=== PATIENT | female | born 1970 | race Caucasian/White ===

== ENCOUNTER 2020-05-13 15:35 | Inpatient (IN) | payer BC, OTHER ==
--- NOTE | 2020-05-13 16:42 | ULT ---
EXAM: US Gallbladder RUQ CLINICAL HISTORY: Cholelithiasis. Right upper arm pain.. COMPARISON: None. FINDINGS: Pancreas: Obscured by bowel gas Liver:Hepatic parenchyma has a normal echotexture. 2.1 cm hepatic cyst. No solid hepatic masses or in trahepatic biliary dilatation. Right hepatic lobe: 15.9 cm Gallbladder: Sonographic evidence of cholelithiasis. Gallbladder wall is 0.3 cm. No pericholecystic f luid. Riggs's sign:Neck Portal Vein: Patent. Appropriate directional flow Bile ducts: 0.4 cm common bile duct diameter Right kidney: No hydronephrosis. Right kidney measures 10.5 cm in length. IMPRESSION: 1. Sonographic evidence of cholelithiasis. Gallbladder wall thickness of the upper limits of normal. No pericholecystic fluid. Negative Riggs's sign. There is concern for cholecystitis, consider HIDA scan.
[2020-05-13] MEDS ORDERED: cefTRIAXone\\ROCEPHIN 1 GM in Sodium Chloride 0.9% 100 ML IVPB SCH (18:45)
[2020-05-13] MEDS ORDERED: Electrolyte Replacement Protoc 1 EACH EACH FS SCH (19:00)
[2020-05-13 19:19] LABS: #Eosinphils 0.1 thou/uL (0.0-0.7); #Lymphocytes 1.1 thou/uL (1.20-3.40); #Monocytes 0.6 thou/uL (0.11-0.59); #Neutrophils 9.1 thou/uL (1.40-6.50); %Basophils 0.4 % (0.0-1.0); %Eosinophils 0.7 % (0.0-10.0); %Monocytes 5.7 % (0.0-10.0); %Neutrophils 83.2 % (42.0-75.0); Hemoglobin 11.8 g/dL (12.0-16.0); Mean Corpuscular HGB CONC 33.1 g/dL (32.0-36.0); Mean Corpuscular Hemoglobin 30.6 pg (27.0-31.0); Mean Corpuscular Volume 92.6 fL (78.0-98.0); Mean Platelet Volume 9.8 fL (7.4-10.4); Platelet Count 167 thou/uL (130-400); RBC Distribution Width 12.9 % (11.5-14.5); Red Blood Cell (RBC) Count 3.85 mill/uL (4.20-5.40); White Blood Cell (WBC) Count 10.9 thou/uL (4.8-10.8)
[2020-05-13] MEDS ORDERED: Electrolyte Replacement Protocol FS PRN (19:30)
[2020-05-13 19:37] LABS: ALT (SGPT) 8 U/L (8-55); AST (SGOT) 16 U/L (5-34); Albumin 3.6 g/dL (3.5-5.0); Alkaline Phosphatase 71 U/L (40-110); Anion Gap 15 mmol/L (10-20); BUN (Urea Nitrogen) 10 mg/dL (7.0-18.7); Bilirubin, Total 0.8 mg/dL (0.2-1.2); Calc. Creatinine Clearance 0 mL/min (70-130); Calcium 8.8 mg/dL (7.8-10.44); Carbon Dioxide 20 mmol/L (22-29); Chloride 104 mmol/L (98-107); Estimated GFR-MDRD 65; Globulin 3.1 g/dL (2.4-3.5); Glucose 94 mg/dL (70-105); Magnesium 1.8 mg/dL (1.6-2.6); Potassium 3.1 mmol/L (3.5-5.1); Protein, Total 6.7 g/dL (6.0-8.3); Sodium 136 mmol/L (136-145)
--- NOTE | 2020-05-13 20:19 | PDOC.HHP ---
Hospitalist HPI - History of Present Illness Right lower quadrant pain History of Present Illness: This is a 50-year-old female with a history of hypothyroidism who presents to the ED as a transfer from [facility] on account of diverticulitis. Patient is known to have restarted having right lower quadrant pain about 2 days ago which was initially so severe it made had have to squat when she got out of a car. She went home and rested and pain subsequently subsided however only to recur care. As pain got significantly worse she presented to her PCP and was sent to [facility] and later transferred here for higher level care. During her evaluation it was noted that she also has a right upper quadrant tenderness for which she had an ultrasound scan which could not rule out diverticulitis. She had 3 loose stools a day ago however none today. She denies any constipation. Has increased urinary frequency but no dysuria. She denies any fevers nausea vomiting however she has anorexia. CT scan of the abdomen was however concerning for diverticulitis with multiple cholelithiasis. Labs at presentation showed a leukocytosis of 10.9 with mild anemia of 11.8. She also had a potassium of 3.1. Urinalysis showed increased protein with increased RBCs. She was started on vancomycin and cefepime Her blood pressures initially were in the 90sreceived bolus of normal saline with improvement. Hospitalist team was consulted for admission Of note she recently had work-related left ankle injury for which she had orthopedic surgery and is currently in orthopedic boots. Hospitalist ROS - Review of Systems Constitutional: denies: fever, chills, sweats, weakness Respiratory: reports: cough (Occasional dry cough). denies: shortness of breath , hemoptysis, SOB with excertion, pleuritic pain Cardiovascular: denies: chest pain, palpitations, orthopnea Gastrointestinal: denies: nausea, vomiting, abdominal pain, diarrhea, constipation Genitourinary: reports: frequency. denies: dysuria, incontinence, hematuria Neurological: denies: weakness, numbness, incoordination, change in speech All other systems reviewed; all pertinent +/- noted in HPI/Subj - Medication Medications: HCTZ 12.5 mg daily Thyroid 60 mg daily Telmisartan 40 mg daily Omeprazole 40 mg daily Levocetirizine 5 mg next Allergies: No known allergies Hospitalist History - Past Medical History Gastrointestinal: reports: GERD Endocrine: reports: Hypothyroidism - Past Surgical History Past Surgical History: reports: Hysterectomy - Exam Eye: PERRL, anicteric sclera Heart - other findings: S1-S2 present and normal. No murmurs gallops or rubs. Respiratory - other findings: Air entry adequate bilaterally. No rhonchi rales or wheezes. Gastrointestinal: non-distended, normal bowel sounds, no palpable masses, no hepatomegaly, no splenomegaly Gastrointestinal - other findings: Left lower quadrant tenderness, right upper quadrant tenderness. Extremities - other findings: Left lower limb and orthopedic boots. Right foot with plates. Hospitalist Results - Labs Result Diagrams: 05/13/20 19:05 05/13/20 19:05 Lab results: WBC 10.9 thou/uL (4.8-10.8) H 05/13/20 19:05 Hgb 11.8 g/dL (12.0-16.0) L 05/13/20 19:05 Hct 35.7 % (36.0-47.0) L 05/13/20 19:05 MCV 92.6 fL (78.0-98.0) 05/13/20 19:05 Plt Count 167 thou/uL (130-400) 05/13/20 19:05 Neutrophils % 83.2 % (42.0-75.0) H 05/13/20 19:05 Sodium 136 mmol/L (136-145) 05/13/20 19:05 Potassium 3.1 mmol/L (3.5-5.1) L 05/13/20 19:05 Chloride 104 mmol/L (98-107) 05/13/20 19:05 Carbon Dioxide 20 mmol/L (22-29) L 05/13/20 19:05 BUN 10 mg/dL (7.0-18.7) 05/13/20 19:05 Creatinine 0.92 mg/dL (0.6-1.1) 05/13/20 19:05 Glucose 94 mg/dL (70-105) 05/13/20 19:05 Calcium 8.8 mg/dL (7.8-10.44) 05/13/20 19:05 Total Bilirubin 0.8 mg/dL (0.2-1.2) 05/13/20 19:05 AST 16 U/L (5-34) 05/13/20 19:05 ALT 8 U/L (8-55) 05/13/20 19:05 Alkaline Phosphatase 71 U/L (40-110) 05/13/20 19:05 Serum Total Protein 6.7 g/dL (6.0-8.3) 05/13/20 19:05 Albumin 3.6 g/dL (3.5-5.0) 05/13/20 19:05 Hospitalist H&P A/P - Plan Plan: 50-year-old female patient with a history of hypothyroidism presents with a 2- day history of left lower quadrant pain and now diagnosed with acute diverticulitis. She has also right upper quadrant pain with cholelithiasis and concerning for possible cholecystitis. Initial blood pressures were 90s systolic and concerning for possible sepsis Initial admission order was placed for observation however this will be changed while on admission to inpatient admission if needed tomorrow. Possible sepsis So has been diverticulitis and possibly cholecystitis Leukocytosis of 10.9, with mean arterial pressure going as low as 67 however this improved with fluid bolus. Lactate was below 2 Blood culture ordered He was started on vancomycin and cefepime Switch antibiotics to Zosyn for anaerobic coverage Diverticulitis Started on vancomycin and cefepime We will continue onZosyn We will keep n.p.o. Consult GI. Possible cholecystitis Cholelithiasis however no clear impression for cholecystitis. HIDA scan has been suggested by radiology We will appreciated GI input in this. Continue Zosyn For possible consult for general surgery. Cholelithiasis Surgery evaluation in a.m. Hematuria Unclear etiology Repeat UA in the morning Urology consult if indicated. Hypothyroidism Continue home medications. Left ankle fracture Status post orthopedic surgery Still wearing orthopedic boot Consult orthopedic in a.m. DVT prophylaxisLovenox
[2020-05-13] MEDS ORDERED: metroNIDAZOLE 500 MG in Premix Bag 1 BAG IVPB SCH (22:00)
[2020-05-13 22:17] VITALS: BMI 34.6
[2020-05-13] MEDS: Piperacillin/Tazobactam 4.5 GM in Sodium Chloride 0.9% 100 ML IVPB SCH (22:43)
[2020-05-13] MEDS ORDERED: Magnesium 2 GM/50 ML 2 GM in Premix Bag 1 BAG IVPB SCH (23:30)
[2020-05-13] MEDS ORDERED: Potassium Chloride 40 MEQ in Premix Bag 1 BAG IVPB SCH (23:30)
[2020-05-13] MEDS ORDERED: Potassium Chloride 40 MEQ in Sodium Chloride 0.9% 250 ML 250 ML IVPB SCH (23:30)
[2020-05-14] MEDS: Sodium Chloride 0.9% 1,000 ML IV SCH ×2 (01:58→15:53)
[2020-05-14 05:35] LABS: Band 3 % (5-11); Eosinophils 1 % (0-10); Hemoglobin 10.4 g/dL (12.0-16.0); Lymphocytes 16 % (21-51); MDiff Complete? YES; Mean Corpuscular HGB CONC 32.9 g/dL (32.0-36.0); Mean Corpuscular Volume 91.3 fL (78.0-98.0); Mean Platelet Volume 9.1 fL (7.4-10.4); Monocytes 2 % (0-10); Platelet Count 174 thou/uL (130-400); RBC Distribution Width 12.7 % (11.5-14.5); Red Blood Cell (RBC) Count 3.45 mill/uL (4.20-5.40); White Blood Cell (WBC) Count 8.5 thou/uL (4.8-10.8)
[2020-05-14 05:47] LABS: ALT (SGPT) 10 U/L (8-55); AST (SGOT) 15 U/L (5-34); Albumin 3.1 g/dL (3.5-5.0); Alkaline Phosphatase 66 U/L (40-110); Anion Gap 11 mmol/L (10-20); BUN (Urea Nitrogen) 9 mg/dL (7.0-18.7); Bilirubin, Total 1.1 mg/dL (0.2-1.2); Calc. Creatinine Clearance 140 mL/min (70-130); Calcium 8.5 mg/dL (7.8-10.44); Carbon Dioxide 24 mmol/L (22-29); Chloride 104 mmol/L (98-107); Estimated GFR-MDRD 75; Globulin 2.8 g/dL (2.4-3.5); Glucose 93 mg/dL (70-105); Protein, Total 5.9 g/dL (6.0-8.3); Sodium 136 mmol/L (136-145)
[2020-05-14] MEDS ORDERED: Potassium Chloride 40 MEQ in Sodium Chloride 0.9% 250 ML 250 ML IVPB SCH ×2 (06:15→08:00)
[2020-05-14] MEDS: Piperacillin/Tazobactam 4.5 GM in Sodium Chloride 0.9% 100 ML IVPB SCH ×2 (06:53→13:53)
[2020-05-14] MEDS ORDERED: Enoxaparin Sodium 40 MG/0.4 ML SYRINGE SC SCH (09:00)
[2020-05-14 11:53] VITALS: BP 111/58; TEMP 98.8
[2020-05-14 12:43] LABS: SARS-CoV-2 MS2 Positive; SARS-CoV-2 N Gene Negative; SARS-CoV-2 S Gene Negative; SARS-CoV-2 by NAA Not Detected (NotDetected); SARS-CoV-2 orf1ab Negative
--- NOTE | 2020-05-14 16:54 | CON ---
DATE OF CONSULTATION: HISTORY OF PRESENT ILLNESS: Papo Waller is a 50-year-old female from [place]. The patient began having pain several days ago, left lower quadrant, got worse, onset , became worse on Friday, more severe on Friday. Went to the emergency room in [place], evaluated, and sent to our emergency room, admitted to hospitalist service. On exam, the patient was noted to have slight tenderness in right upper quadrant. Gallbladder ultrasound was obtained. CT scan of the abdomen and pelvis reveals a 2 cm ovarian cyst, changes with uncomplicated diverticulitis. Ultrasound of the gallbladder reveals sludge with normal bile duct caliber. Liver function tests normal. The patient has a history of reflux, controlled with PPIs. Reflux is manifested in thoracic burning pain. She has no upper abdominal complaints. Detailed evaluation and conversation revealed total absence of any biliary symptoms. The patient has never had episodes of diverticulitis in the past. She is 50 years old. Never had a colonoscopy. Her mother had a colon resection for some diagnosis, that she is unsure of. She is not sure whether it was cancer or not. Family history otherwise noncontributory. The patient has since been having intravenous antibiotics and bowel rest yesterday and is feeling much better. Dr. Martinez is seeing her. SOCIAL HISTORY: Tobacco, none. Alcohol, none. ALLERGIES: NONE. MEDICATIONS: 1. Xyzal. 2. Hydrochlorothiazide. 3. Telmisartan. 4. Thyroid replacement. 5. Omeprazole. 6. Metronidazole. 7. Levaquin. 8. This hospitalization, she has been started on Zosyn. PAST SURGICAL HISTORY: 1. Bilateral ankle surgery. 2. Total abdominal hysterectomy and bilateral salpingo-oophorectomy. 3. Tonsillectomy in the past. PAST MEDICAL HISTORY: Aside from reflux, high blood pressure, and low thyroid, noncontributory. Reflux is well controlled on PPIs. She follows a PA physician in [place]. REVIEW OF SYSTEMS: Noncontributory. FAMILY HISTORY: Otherwise noncontributory. PHYSICAL EXAMINATION: VITAL SIGNS: Height 5 feet 9 inches, 234 pounds, and 34 BMI, temperature 98.8 degrees, heart rate 71, and blood pressure 111/58. LUNGS: Clear to auscultation. CARDIAC: Regular rate and rhythm without murmur or gallop. ABDOMEN: Soft and nontender in her epigastric and right upper quadrant. She has minimal tenderness and minimal guarding in the left lower quadrant. Otherwise, her abdomen remainder quadrants are soft. EXTREMITIES: Unremarkable. No ankle edema. LABORATORY DATA: White count 10.9 yesterday and 8.5 today, hemoglobin 10.4. Basic metabolic profile normal. Potassium 3.0. ASSESSMENT AND PLAN: 1. Diverticulitis. We would recommend outpatient therapy consisting of clear to full liquids today, advance slowly to a low-fiber soft diet for the next 2 weeks. After 2 weeks, she can transition into a high-fiber diet. We will continue oral antibiotics for a week to 10 days. We would recommend that she see Dr. Martinez as an outpatient in 2-3 months for colonoscopy. 2. Asymptomatic cholelithiasis. We would not recommend cholecystectomy. Should she develop biliary symptoms, she can call my office and we can discuss that. I have discussed the operation with her. Risks and benefits involved. 3. I have discussed long-term diverticulitis with her and the complications that can occur, and should she have future episodes, she should immediately start on liquids only, seek a physician, oral antibiotics, and hopefully treat this as an outpatient. I will be glad to see her as an outpatient should she have future surgical concerns. Job ID: [id number]
[2020-05-14] MEDS ORDERED: Amoxicillin/Potassium Clav 875 MG TAB PO SCH (21:00)
--- NOTE | 2020-05-15 13:44 | DIS ---
DATE OF ADMISSION: 05/14/2020 DATE OF DISCHARGE: 05/14/2020 DISCHARGE DIAGNOSES: 1. Acute diverticulitis. 2. Cholelithiasis. 3. Left lower limb fracture. 4. Hypothyroidism 5. Right pelvic cystic mass HOSPITAL COURSE: This is a 50-year-old female patient with history of hypothyroidism, who presented as a transfer from [facility] in account of acute diverticulitis. She noted the pain 2 days prior to presentation, which caused to further worsen. CT scan revealed diverticulitis, however, also revealed cholelithiasis. Right upper quadrant ultrasound also noted cholelithiasis, but could not rule out cholecystitis. She was started on vancomycin and cefepime at [place], however, at presentation, antibiotics was changed to Zosyn. At presentation, she also had low blood pressure with systolic in the 80s and 90s IV bolus of normal saline on concerns for possible sepsis. Her blood pressure however corrected and she made significant recovery within a day on admission. Gastroenterology was consulted and recommended discharge on antibiotics for 10 days. Given concerns for possible cholecystitis, General Surgery was also consulted, who recommended non-surgical approach of this admission and to follow up in clinic when necessary. Her CT scan also revealed a left pelvic cystic lesion possibly from the ovaries. Patient will follow up with her PCP and ortho assistant. Consultations: General surgery, GI She will follow up with PCP GI follow-up in 8 weeks DISCHARGE PHYSICAL EXAMINATION: GENERAL: The patient was in no acute distress. CARDIOVASCULAR: S1 and S2 present. No murmurs, gallops, or rubs. RESPIRATORY: Air entry adequate bilaterally. ABDOMEN: Soft, mild left iliac fossa tenderness, no rebound tenderness or guarding. Bowel sounds present and normal. DISCHARGE CONDITION: Stable. FOLLOWUP: 1. PCP. 2. Gastroenterology: To follow up for colonoscopy in about 8 weeks. Job ID: [id number] [facility]
--- NOTE | 2020-05-15 15:16 | CON ---
DATE OF CONSULTATION: 05/14/2020 REASON FOR CONSULTATION: Diverticulitis, gallstones. HISTORY OF PRESENT ILLNESS: Ms. Ozzie Waller is a pleasant 50-year-old female who came to the emergency room yesterday for 3 days of left lower quadrant pain, which was worsening with obstipation and then she had a fever of 101. In the emergency room, she had elevated white count, tenderness in the left lower quadrant. She reported it had been gotten progressively worse when she walked, moved around would hurt there. A CAT scan showed diverticulitis. It also apparently shows some gallstones in her gallbladder. She reports that she has had reflux, which has responded well to PPI therapy in the past. At work, sometimes she gets intermittent sharp pain in her chest, which she attributed to stress of her job. She has not really had any postprandial pain in her chest, upper abdomen, or back. On the ultrasound, there were some gas densities in the middle of some of her gallstones and she had a mild distention of the gallbladder with no overt pericholecystic edema. Ultrasound showed a borderline gallbladder wall. There was no evidence of elevated liver function test nor ductal dilatation. Today, she feels much better. She wants to eat. She has been n.p.o. overnight. She has not had diverticulitis in the past. She has never had a screening colonoscopy. She has no history of blood in her stool. She has no family history of colorectal cancer, liver disease, Crohn's, or colitis. REVIEW OF SYSTEMS: GI: No weight loss, dysphagia, or odynophagia. PAST SURGICAL HISTORY: 1. She has had some trauma to the left ankle, requiring plate. 2. She has also had replacement of the right ankle. 3. She also reports a hysterectomy. PAST MEDICAL HISTORY: 1. Reflux. 2. Hypothyroidism. 3. Hypertension. MEDICATIONS: At home: 1. Hydrochlorothiazide. 2. Synthroid. 3. Telmesartan. 4. Omeprazole. 5. Levocetirizine. Medications here: 1. Lovenox. 2. Protonix. 3. Zosyn. 4. Normal saline at 100. FAMILY HISTORY: Negative for colorectal cancer, liver disease, inflammatory bowel disease, or colon cancer. SOCIAL HISTORY: Drinks socially rarely. Does not use drugs. Does not smoke. She lives in [place], [place]. She sees Carla Peter RN, [employer], for primary care. PHYSICAL EXAMINATION: VITAL SIGNS: Temperature was 98.6 last night and 98.8 today, pulse 71, and blood pressure 111/58. GENERAL: She is resting comfortably in bed. She is in no distress. She is alert and oriented to person, place, and time. OROPHARYNX: Without lesions. NECK: Supple. There is no adenopathy in the supraclavicular or infraclavicular areas. LUNGS: Clear. HEART: Regular rate and rhythm without clicks or murmurs. ABDOMEN: Soft. There is no tenderness in the right upper quadrant. There is no rebound. There is no palpable hepatosplenomegaly. There is no tenderness in the left lower quadrant at this time. EXTREMITIES: No clubbing, cyanosis, or edema. SKIN: Without rash or lesions. LABORATORY DATA: Sodium 136, potassium 3 and it was 3.1 yesterday, BUN and creatinine 9 and 0.8. Liver function tests normal with AST and ALT of 15 and 11, bilirubin 1.1, and alkaline phosphatase 66. Lipase was 14 yesterday. TSH 2.6 yesterday. White count was 12.6 yesterday, 10.9 last night, and 8.5 this morning; hemoglobin is 10.4 with MCV 93 and hemoglobin was 12.1 yesterday. Urine showed squames, rare urine bacteria, 7 to 10 red blood cells. COVID testing was negative. IMAGING STUDIES: In addition to the diverticulitis and the gallstones, the patient had a cystic mass in the right pelvis, measuring 2.2 cm. Two small hepatic cysts as well. ASSESSMENT: 1. Acute diverticulitis, improving with IV antibiotics. We discussed the pathophysiology and treatment of this. I think she can go on a full liquid diet. If she tolerates that, she can go home with a bland diet later this afternoon with 7 more days of either Augmentin 875 mg b.i.d. or Levaquin 500 mg daily with Flagyl 500 mg t.i.d. for 7 more days. She should have a colonoscopy in about 6 to 8 weeks as long as she has complete resolution of this 1st episode of diverticulitis for colon cancer screening to make sure there is no other pathology present. 2. With regard to her gallstones, it does not appear that she has any acute cholecystitis at this time. She is very nontender now. She has a history of reflux, but does not have any classic symptoms of biliary colic. She does have some gas in some of the gallstones, which was concerning for bacteria there. Ultimately, she may need a cholecystectomy, but I do not think she needs one today. General Surgery is going to visit with her about that. I will follow with their opinion and recommendations. 3. With regard to the pelvic cysts and the area of the ovaries, the patient is aware of this and is going to follow up with Ms. Peter, her primary provider in [place], at a later date. We will follow along with you. If the patient is discharged, we will be happy to see her back, consider colonoscopy in 6 to 8 weeks. It will be happy to see her back if she has any bumps in the road in terms of recovery in the outpatient setting. Job ID: [id number]
--- NOTE | 2020-05-16 05:46 | PQF ---
CLINICAL DOCUMENTATION CLARIFICATION FORM: Dear : Elio Delatorre Date / Time: 05/16/20 0545 Please exercise your independent, professional judgment in responding to the clarification form. Clinical indicators are provided on the bottom of this form for your review Please check appropriate box(s): [ ] Hypovolemic Shock [ ] Septic Shock [ ] Shock Unspecified [ x] Other diagnosis _Hypotention-resolved with fluid bolus [ ] Unable to determine In addition, please specify: Present on Admission (POA): [ ] Yes [ ] No [ ] Unable to determine Physician Signature: Date/Time: For continuity of documentation, please document condition throughout progress notes and discharge summary. Thank You. To be completed by CDI/Coding staff for physician review: Present Clinical Indicators - Signs / Symptoms / Labs Results and Location in Medical Record [X] BP 117/56; 108/56; 120/58; 111/54; 111/58 Vital signs 05/13 [X] Pulse 92, Resp 18, Temp 98.6 Vital signs 05/13 [X] WBC 10.9, Plt count 167, Neutrophils 83.2 Laboratory 05/13 [X] Blood culture: No growth at 48 hrs Microbiology 05/13 [X] Pt no acute distress at this time however she remain hypotensive after a large amount of fluids ED notes p6 05/13 [X] Having RLQ pain H&P p1 05/14 Dr Delatorre [X] Possible sepsis due to diverticulis and possibly cholecystitis H&P p3 Dr Delatorre Present Risk Factors Results and Location in Medical Record [X] Hypothyroidism H&P p1 05/14 Dr Delatorre [X] Diverticulitis H&P p1 05/14 Dr Delatorre [X] Sepsis H&P p3 05/14 Dr Delatorre [X] Cholecystitis with cholelithiasis H&P p3 05/14 Dr Delatorre Present Treatments Results and Location in Medical Record [X] IV Ceftrixone 1 gm NOV 07 [X] IV Zosyn 4.5 gm NOV 07 [X] IVF NS Bolus 3L NOV 07 [X] Blood culture Microbiology 05/13 [facility] Signature: Tarah Greenberg Phone #: [phone] Date/Time: 05/16/2020 0564 This is a permanent part of the Medical Record MTDD
== END 2020-05-14 16:10 | disposition home or self-care (01) | DRG 872 ==
LOC: ERS 15:35 → 2SW 18:15 → OBSVTOIN 05-14 15:25
PROVIDERS: ADMIT Student in an Organized Health Care Education/Training Program; ATTEND Student in an Organized Health Care Education/Training Program
DX: A41.9 Sepsis, unspecified organism (principal); K57.32 Diverticulitis of large intestine without perforation or abscess without bleeding; K80.10 Calculus of gallbladder with chronic cholecystitis without obstruction; R31.9 Hematuria, unspecified; E03.9 Hypothyroidism, unspecified; Z20.828 Contact with and (suspected) exposure to other viral communicable diseases; Z96.661 Presence of right artificial ankle joint; N83.201 Unspecified ovarian cyst, right side; K21.9 Gastro-esophageal reflux disease without esophagitis; X58.XXXD Exposure to other specified factors, subsequent encounter; S82.892D Other fracture of left lower leg, subsequent encounter for closed fracture with routine healing; Z79.899 Other long term (current) drug therapy; Z79.890 Hormone replacement therapy; Z90.710 Acquired absence of both cervix and uterus
CPT/HCPCS: 36415; 76705; 80053; 83735; 85007; 85027; 87635; 96365; 96366; 96375; 96376; G0378; J1650; J2543; J3475; J3480; J3490; J7050; U0003

== ENCOUNTER 2022-06-18 00:39 | Observation (INO) | payer BC ==
[2022-06-18 03:16] VITALS: BMI 38.9
[2022-06-18] MEDS ORDERED: Acetaminophen 325 MG TAB PO PRN (03:40)
[2022-06-18] MEDS ORDERED: Ondansetron PF 4 MG/2 ML Vial IVP PRN (03:40)
[2022-06-18] MEDS ORDERED: Sodium Chloride 0.9% 1,000 ML IV SCH (03:45)
[2022-06-18 03:57] LABS: SARS-CoV-2 NAA Rapid Test Not Detected (NotDetected)
[2022-06-18] MEDS: Morphine 4 MG/ML VIAL SLOW IVP PRN ×2 (04:00→08:57)
[2022-06-18 05:20] LABS: #Basophils 0.1 thou/uL (0.0-0.2); #Eosinphils 0.4 thou/uL (0.0-0.7); #Lymphocytes 2.4 thou/uL (1.20-3.40); #Monocytes 0.8 thou/uL (0.11-0.59); #Neutrophils 5.1 thou/uL (1.40-6.50); %Basophils 0.7 % (0.0-1.0); %Eosinophils 4.9 % (0.0-10.0); %Lymphocytes 26.9 % (21.0-51.0); %Monocytes 9.4 % (0.0-10.0); %Neutrophils 58.1 % (42.0-75.0); Hemoglobin 12.3 g/dL (12.0-16.0); Mean Corpuscular HGB CONC 32.7 g/dL (32.0-36.0); Mean Corpuscular Hemoglobin 29.2 pg (27.0-31.0); Mean Corpuscular Volume 89.4 fL (78.0-98.0); Mean Platelet Volume 9.3 fL (7.4-10.4); Platelet Count 196 thou/uL (130-400); RBC Distribution Width 12.2 % (11.5-14.5); Red Blood Cell (RBC) Count 4.22 mill/uL (4.20-5.40); White Blood Cell (WBC) Count 8.7 thou/uL (4.8-10.8)
[2022-06-18 05:53] LABS: ALT (SGPT) 29 U/L (8-55); AST (SGOT) 69 U/L (5-34); Albumin 3.6 g/dL (3.5-5.0); Alkaline Phosphatase 60 U/L (40-110); Anion Gap 12 mmol/L (10-20); BUN (Urea Nitrogen) 13 mg/dL (9.8-20.1); Bilirubin, Total 0.7 mg/dL (0.2-1.2); Calc. Creatinine Clearance 136 mL/min (70-130); Calcium 9.2 mg/dL (7.8-10.44); Carbon Dioxide 23 mmol/L (22-29); Chloride 105 mmol/L (98-107); Estimated GFR 76; Globulin 2.9 g/dL (2.4-3.5); Glucose 92 mg/dL (70-105); Potassium 3.7 mmol/L (3.5-5.1); Protein, Total 6.5 g/dL (6.0-8.3); Sodium 136 mmol/L (136-145)
[2022-06-18] MEDS ORDERED: Ketorolac Tromethamine 30 MG/ML VIAL ONE (13:56)
[2022-06-18] MEDS ORDERED: Acetaminophen 500 MG TAB ONE (13:56)
[2022-06-18] MEDS ORDERED: fentaNYL Citrate/PF 100 MCG/2 ML SYRINGE ONE (14:01)
[2022-06-18] MEDS ORDERED: Ketorolac Tromethamine 30 MG/ML VIAL IVP PRN (14:22)
[2022-06-18] MEDS ORDERED: Meperidine HCl/PF 25 MG/ML VIAL SLOW IVP PRN ×2 (14:22)
[2022-06-18] MEDS ORDERED: Ondansetron HCl/PF 4 MG/2 ML Vial IVP PRN (14:22)
[2022-06-18] MEDS ORDERED: Promethazine HCl 25 MG/ML VIAL IVPB PRN (14:22)
[2022-06-18] MEDS ORDERED: HYDROmorphone 2 MG/ML VIAL SLOW IVP PRN (14:22)
[2022-06-18] MEDS ORDERED: Promethazine HCl 25 MG/ML VIAL IM PRN (14:22)
[2022-06-18] MEDS ORDERED: Morphine Sulfate 2 MG/ML SYRINGE SLOW IVP PRN (14:22)
[2022-06-18] MEDS ORDERED: EPINEPHrine 1 MG/ML AMP ONE (14:23)
[2022-06-18] MEDS ORDERED: Bupivacaine 0.25% HCL 30 ML VIAL ONE (14:23)
[2022-06-18] MEDS ORDERED: hydrOXYzine 25 MG TAB PO PRN (14:29)
[2022-06-18] MEDS ORDERED: SUGAMMADEX SODIUM 200 MG/2 ML VIAL ONE (14:58)
[2022-06-18] MEDS ORDERED: Ketamine 50 MG/ML (10ML VIAL) ONE (14:58)
[2022-06-18] MEDS ORDERED: CEFAZOLIN 2 GM VIAL ONE (15:04)
[2022-06-18] MEDS ORDERED: Sodium Chloride 0.9% 100 ML ONE (15:04)
[2022-06-18] MEDS ORDERED: Rocuronium Bromide 10 MG/ML (10ML VIAL) ONE (15:17)
[2022-06-18] MEDS ORDERED: Ondansetron PF 4 MG/2 ML Vial ONE (15:17)
[2022-06-18] MEDS ORDERED: PROPOFOL 200 MG/20 ML VIAL ONE (15:17)
[2022-06-18] MEDS ORDERED: NEOSTIGMINE 3 MG/3 ML SYR 3 MG/3 ML SYRINGE ONE (15:17)
[2022-06-18] MEDS ORDERED: Glycopyrrolate 0.2 MG/ML 5 ML SYRINGE ONE (15:17)
[2022-06-18] MEDS ORDERED: Dexamethasone 20 MG/5 ML VIAL ONE (15:17)
[2022-06-18] MEDS ORDERED: ePHEDrine 50 MG/ML VIAL ONE (15:17)
[2022-06-18] MEDS ORDERED: Morphine 4 MG/ML VIAL SLOW IVP PRN (17:09)
[2022-06-18] MEDS ORDERED: HYDROcodone/Acetaminophen 7.5/325 mg Tablet PO PRN ×2 (17:09)
[2022-06-18] MEDS: Sodium Chloride 0.9% 1,000 ML IV SCH ×2 (18:08→21:13)
[2022-06-18] MEDS ORDERED: traZODone HCl 50 MG TAB PO SCH (21:00)
[2022-06-18] MEDS: CeleCOXIB 100 MG CAP PO SCH (21:12)
[2022-06-19] MEDS: Sodium Chloride 0.9% 1,000 ML IV SCH (05:15)
[2022-06-19 05:32] LABS: #Lymphocytes 0.9 thou/uL (1.20-3.40); #Monocytes 0.6 thou/uL (0.11-0.59); #Neutrophils 12.6 thou/uL (1.40-6.50); %Eosinophils 0.2 % (0.0-10.0); %Lymphocytes 6.5 % (21.0-51.0); %Monocytes 4.3 % (0.0-10.0); Hemoglobin 12.3 g/dL (12.0-16.0); Mean Corpuscular HGB CONC 32.6 g/dL (32.0-36.0); Mean Corpuscular Hemoglobin 29.1 pg (27.0-31.0); Mean Corpuscular Volume 89.2 fL (78.0-98.0); Mean Platelet Volume 8.8 fL (7.4-10.4); Platelet Count 205 thou/uL (130-400); Red Blood Cell (RBC) Count 4.23 mill/uL (4.20-5.40); White Blood Cell (WBC) Count 14.2 thou/uL (4.8-10.8)
[2022-06-19 06:06] LABS: ALT (SGPT) 75 U/L (8-55); AST (SGOT) 123 U/L (5-34); Albumin 3.7 g/dL (3.5-5.0); Alkaline Phosphatase 62 U/L (40-110); Anion Gap 12 mmol/L (10-20); BUN (Urea Nitrogen) 8 mg/dL (9.8-20.1); Bilirubin, Total 0.6 mg/dL (0.2-1.2); Calc. Creatinine Clearance 150 mL/min (70-130); Calcium 9.2 mg/dL (7.8-10.44); Carbon Dioxide 24 mmol/L (22-29); Chloride 104 mmol/L (98-107); Estimated GFR 85; Glucose 141 mg/dL (70-105); Protein, Total 6.7 g/dL (6.0-8.3); Sodium 136 mmol/L (136-145)
[2022-06-19] MEDS ORDERED: Escitalopram Oxalate 20 mg Tablet PO SCH (09:00)
[2022-06-19] MEDS: CeleCOXIB 100 MG CAP PO SCH (09:27)
[2022-06-19 14:36] VITALS: BP 127/75; TEMP 98.4
[2022-06-19] MEDS ORDERED: Thyroid 60 MG TAB PO SCH (21:00)
== END 2022-06-19 16:13 | disposition home or self-care (01) ==
LOC: SURG A 03:08
PROVIDERS: ADMIT Internal Medicine; ATTEND Internal Medicine
PROC: 0FT44ZZ Resection of Gallbladder, Percutaneous Endoscopic Approach (ICD-10-PCS; principal; 2022-06-18)
DX: K80.12 Calculus of gallbladder with acute and chronic cholecystitis without obstruction (principal); K82.1 Hydrops of gallbladder; I10 Essential (primary) hypertension; E03.9 Hypothyroidism, unspecified; K21.9 Gastro-esophageal reflux disease without esophagitis; K57.30 Diverticulosis of large intestine without perforation or abscess without bleeding; E66.9 Obesity, unspecified; Z68.38 Body mass index [BMI] 38.0-38.9, adult; Z87.891 Personal history of nicotine dependence; Z79.890 Hormone replacement therapy; Z79.899 Other long term (current) drug therapy; Z88.7 Allergy status to serum and vaccine; Z20.822 Contact with and (suspected) exposure to COVID-19
CPT/HCPCS: 36415; 76705; 80053; 85025; 88304; 96374; 96376; C1713; G0378; J0171; J0690; J1100; J1885; J2270; J2405; J2704; J3490; J7050; S0020; U0002